=== PATIENT | female | born 1965 | race African-American/Black ===

== ENCOUNTER 2019-03-28 14:39 | Inpatient (IN) ==
[2019-03-28] MEDS ORDERED: ZOFRAN IV PRN (16:52)
[2019-03-28 17:42] LABS: BASO# 0.04 X1000 (0.0-0.2); BASO% 0.3 % (0.0-0.8); EOS# 0.08 X1000 (0.0-0.7); EOS% 0.7 % (0.0-10.0); HEMATOCRIT 38.8 % (37.0-47.0); HEMOGLOBIN 12.5 g/dL (12.0-16.0); IMM GRAN# 0.02 X1000 (0.0-0.04); IMM GRAN% 0.2 % (0.0-0.5); LYMPH# 2.44 X1000 (1.2-3.4); LYMPH% 20.8 % (20.5-51.1); MCH 27.4 PG (27-31); MCHC 32.2 g/dL (33-37); MCV 84.9 FL (81-99); MONO# 1.51 X1000 (0.11-0.59); MONO% 12.9 % (1.7-9.3); MPV 10.4 FL (7.4-10.4); NEUT# 7.64 X1000 (1.4-6.5); NEUT% 65.1 % (42.2-75.2); PLT 254 X1000 (130-400); RBC 4.57 XMIL (4.2-5.4); RDW 16.7 % (11.5-14.5); WBC 11.73 X1000 (4.8-10.8)
--- NOTE | 2019-03-28 17:44 | Diag Imaging Result Doc PS360 ---
EXAM: CHEST-1 VIEW INDICATION: abd back pain TECHNIQUE: One view COMPARISON: 03/14/2017 FINDINGS: Inspiration is slightly suboptimal and there is suggestion of mild atelectasis at the right lung base. Lungs are grossly clear, otherwise. There is no discrete pleural fluid collection or pneumothorax. The cardiomediastinal silhouette and central vasculature are grossly unremarkable. IMPRESSION: Suggestion of minimal right basilar atelectasis. No definite acute pathology, otherwise. Electronically signed by Adebayo Bernal 03/28/2019 5:41 PM
--- NOTE | 2019-03-28 17:48 | Diag Imaging Result Doc PS360 ---
EXAM: KUB ABDOMEN INDICATION: abd back pain TECHNIQUE: 2 views COMPARISON: 04/29/2018 FINDINGS: There is somewhat abundant stool in the colon suggesting possible mild constipation. There is no obstructive bowel pattern. There is no evidence of large volume free abdominal gas. There is no evidence of organomegaly. No abnormal calcific densities project over the abdomen or pelvis. IMPRESSION: Possible mild constipation. Electronically signed by Adebayo Bernal 03/28/2019 5:46 PM
[2019-03-28 18:03] LABS: POTASSIUM 3.6 mmol/L (3.5-5.1); SODIUM 139 mmol/L (136-145)
[2019-03-28 18:04] LABS: AGAP 16; ALB/GLOB RATIO 1.2; ALKALINE PHOSPHATASE 90 U/L (32-104); BUN 10 mg/dL (8-22); CALCIUM 10.1 mg/dL (8.8-10.2); CHLORIDE 102 mmol/L (98-107); COSMO 277; CREATININE 0.9 mg/dL (0.5-0.9); ESTIMATED GFR > 60; GLUCOSE 103 mg/dL (70-104); GOT 12 U/L (10-30); GPT 11 U/L (10-36); TCO2 21 mmol/L (25-35); TOTAL BILIRUBIN 0.34 mg/dL (0.20-1.00); TOTAL PROTEIN 7.3 g/dL (6.3-8.3)
[2019-03-28] MEDS: MORPHINE IV PRN ×3 (18:57→23:50)
[2019-03-28 19:23] LABS: URINE SOURCE CLEAN CATCH
[2019-03-28 19:32] LABS: BILIRUBIN URINE NEGATIVE (NEGATIVE); BLOOD URINE NEGATIVE (NEGATIVE); COLOR YELLOW; GLUCOSE URINE NEGATIVE (NEGATIVE); KETONE URINE NEGATIVE (NEGATIVE); LEUKOCYTES URINE NEGATIVE (NEGATIVE); NITRITE URINE NEGATIVE (NEGATIVE); PROTEIN URINE NEGATIVE (NEGATIVE); SP GRAVITY URINE 1.009; TURBIDITY URINE CLEAR (CLEAR); UR EPITHELIAL CELLS <10 /HPF (<10); URINE BACTERIA NEGATIVE /HPF; URINE RBC <10 /HPF (<10); URINE WBC <10 /HPF (<10); UROBILINOGEN URINE NORMAL (NORMAL)
[2019-03-28] MEDS: LEVAQUIN 750 MG/D5W 750 MG/150 ML IVPB IV SCH (20:18)
[2019-03-28] MEDS: KLONOPIN PO SCH (20:18)
[2019-03-28] MEDS: ZANAFLEX PO SCH (20:18)
[2019-03-29] MEDS: MORPHINE IV PRN ×3 (02:22→09:28)
[2019-03-29] MEDS: PRILOSEC PO SCH (06:23)
--- NOTE | 2019-03-29 06:30 | Diag Imaging Result Doc PS360 ---
CT ABD/PELVIS W/PO AND IV CON - 03/28/2019 INDICATION: abd pain,back pain COMPARISON: 02/18/2019 FINDINGS: The lung bases are clear and the heart size is normal. There is a benign flash filling hemangioma in the liver dome. This is stable from prior. Stable lobular kidneys bilaterally. The gallbladder, pancreas, spleen, and adrenals are normal. No bowel obstruction or inflammation. Normal appendix. Urinary bladder, uterus, and rectum are normal. There is advanced multilevel degenerative disc disease all throughout the thoracic spine in the lower lumbar spine. The worse level is L5-S1. No fracture or subluxation. IMPRESSION: No acute disease or change from prior. This exam was performed using automated exposure control, adjustment of mA or kV according to patient size, and/or use of iterative reconstruction technique Electronically signed by Noman Odonnell 03/29/2019 6:28 AM
[2019-03-29] MEDS ORDERED: PROZAC PO SCH (09:00)
[2019-03-29] MEDS: ZANAFLEX PO SCH (09:29)
[2019-03-29] MEDS: KLONOPIN PO SCH ×2 (09:29→23:50)
--- NOTE | 2019-03-29 12:25 | PROGRESS NOTE ---
DATE: 03/29/2019 SUBJECTIVE: Ms. Schneider had some constipation. She has severe back pain. She has severe degenerative disk disease in the lumbar spine. I am going to start her on some IV Robaxin if it is available, and we will continue on the medications by mouth for pain. She has constipation. CT scan of the of the abdomen really did not reveal any acute abdominal disease. There is advanced multilevel degenerative arthritis. I think the arthritis is giving her a lot of back and referred abdominal pain. -1 cc: Surinder Courtney MD
[2019-03-29] MEDS: FLAGYL 250 MG/NS 250 MG/50 ML IVPB IV SCH ×2 (13:09→23:50)
[2019-03-29] MEDS: NEURONTIN PO SCH ×2 (13:10→17:25)
[2019-03-29] MEDS: PROZAC PO SCH ×2 (13:10→17:25)
[2019-03-29] MEDS: ROBAXIN 1,000 MG in NS 50 ML IV SCH ×3 (13:12→23:41)
--- NOTE | 2019-03-29 13:28 | HISTORY AND PHYSICAL ---
Ms. Schneider is a 53-year-old female, is admitted with severe back and abdominal pain. She had some back pain with muscle spasm, could not walk and then she had a lot of abdominal pain which was mostly on the left side. This started actually about 24 hours ago. There was no association with vomiting. However, she had some diarrhea and intermittent constipation. No evidence of any rectal bleeding. She has past surgical history of hysterectomy and had a breast lump. She also had a total knee replacement on the right side. She had fracture in the right lower leg. She has been having constant pain. Besides this, she has severe degenerative arthritis in the lumbar spine, history of hypertension, GERD syndrome. MEDICATIONS: Has been on multiple medications including lisinopril, Klonopin, temazepam and Wilson as well as Zantac. ALLERGIES: She is not allergic to any medications. SOCIAL HISTORY: Does not smoke. Does not drink. REVIEW OF SYSTEMS: Other than pain, it is noncontributory. PHYSICAL EXAMINATION: VITAL SIGNS: Temperature normal, pulse 92 per minute, respiratory rate 16 per minute, blood pressure 113/71. HEAD: Normocephalic. Pupils PERRLA. Fundus examination not done. NECK: Supple. JVP normal. ENT: Unremarkable. There is no evidence of lymphadenopathy, thyroid enlargement, pedal edema, calf tenderness, anemia, cyanosis or clubbing. Pedal pulses well felt. BREAST EXAM: Normal. CHEST: Normal inspection. LUNGS: Clear on auscultation. PMI in the normal position. HEART: Sounds normal. No murmur, gallop or rub noted. ABDOMEN: Nondistended. Hernial orifices normal. No guarding, rigidity, free fluid, masses, or organomegaly. There was definite tenderness in the left lower quadrant. She also had a lot of muscle spasm in the back. 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 Cranial nerves normal. Motor and sensory system examination unremarkable. Deep tendon reflexes normal. Plantars downgoing. Skull and spine examination normal for age. No cerebellar signs or signs of meningeal irritation. Locomotor exam unremarkable. Her SLR was positive. The lumbosacral spine movements are painful and restricted. CLINICAL IMPRESSION: Severe back pain as well as abdominal pain, possible diverticulitis. She has muscle spasms from degenerative disk disease. Will treat accordingly. cc: Surinder Courtney MD
[2019-03-29] MEDS: NORCO-10 PO PRN ×3 (13:32→23:53)
[2019-03-29] MEDS: LEVAQUIN 750 MG/D5W 750 MG/150 ML IVPB IV SCH (17:29)
[2019-03-30] MEDS: RESTORIL PO PRN ×2 (01:08→23:07)
[2019-03-30] MEDS: ROBAXIN 1,000 MG in NS 50 ML IV SCH ×2 (04:17→11:27)
[2019-03-30] MEDS: FLAGYL 250 MG/NS 250 MG/50 ML IVPB IV SCH ×3 (05:00→16:59)
[2019-03-30] MEDS: PRILOSEC PO SCH (06:42)
[2019-03-30] MEDS: NORCO-10 PO PRN ×3 (06:42→19:07)
[2019-03-30] MEDS: LINZESS PO SCH (06:42)
[2019-03-30] MEDS ORDERED: DULCOLAX PR ONE (10:49)
--- NOTE | 2019-03-30 11:12 | PROGRESS NOTE ---
DATE: 03/30/2019 SUBJECTIVE: A 53-year-old, patient, complaining of pain in the flank area, moderate to severe pain, going on for 3 to 4 days. More pain with certain movement. Patient is getting pain medicine and muscle relaxer without significant relief. The patient has a hard time turning around in the bed or even getting up with the medication. No rash suggestive of shingles. No fever or chills. CT scan of the abdomen and pelvis results reviewed. The patient does have advanced degenerative disk disease. No nausea or vomiting. No dysuria or hematuria. Denied typical chest pain or palpitations. Denied any diarrhea. The patient was complaining of being constipated. PAST MEDICAL HISTORY: Hypertension, low back pain, muscle spasm, depression, muscle spasm. Admission history and physical noted. OBJECTIVE: Vital Signs: Reviewed. Neck: Supple. No JVD. Lungs: Bilateral good air entry present. Cardiovascular: S1 and S2 heard. Abdomen: Soft, globular. Bowel sounds present. Extremities: No cyanosis, clubbing. No acute DVT. Tenderness lumbosacral spine. Spasm of paraspinal muscle. IMAGING: Done on admission noted a CT scan of the abdomen and pelvis. Results reviewed. PLAN: I am going to repeat blood work. Continue current treatment. Physical therapy evaluation. Overall plan discussed with the patient and she is in agreement. cc: MD Surinder Garcia MD
[2019-03-30] MEDS: NEURONTIN PO SCH ×4 (11:19→17:38)
[2019-03-30] MEDS: PROZAC PO SCH ×3 (11:19→17:38)
[2019-03-30] MEDS: KLONOPIN PO SCH ×2 (11:19→23:02)
[2019-03-30] MEDS: MOBIC PO SCH (11:20)
[2019-03-30] MEDS: PRINIVIL PO SCH (11:20)
[2019-03-30] MEDS: LEVAQUIN 750 MG/D5W 750 MG/150 ML IVPB IV SCH (23:02)
[2019-03-30] MEDS: LOVENOX SUBQ SCH (23:02)
[2019-03-31] MEDS: FLAGYL 250 MG/NS 250 MG/50 ML IVPB IV SCH ×4 (00:47→17:45)
[2019-03-31] MEDS: NORCO-10 PO PRN ×4 (00:47→19:03)
[2019-03-31] MEDS: ROBAXIN 1,000 MG in NS 50 ML IV SCH ×4 (00:48→20:54)
[2019-03-31 05:57] LABS: BASO# 0.02 X1000 (0.0-0.2); BASO% 0.2 % (0.0-0.8); EOS# 0.13 X1000 (0.0-0.7); EOS% 1.4 % (0.0-10.0); HEMATOCRIT 34.3 % (37.0-47.0); HEMOGLOBIN 10.9 g/dL (12.0-16.0); LYMPH# 1.92 X1000 (1.2-3.4); MCH 27.1 PG (27-31); MCHC 31.8 g/dL (33-37); MCV 85.3 FL (81-99); MONO# 1.35 X1000 (0.11-0.59); MONO% 14.1 % (1.7-9.3); MPV 10.5 FL (7.4-10.4); NEUT# 6.16 X1000 (1.4-6.5); NEUT% 64.3 % (42.2-75.2); PLT 277 X1000 (130-400); RBC 4.02 XMIL (4.2-5.4); RDW 15.9 % (11.5-14.5); WBC 9.58 X1000 (4.8-10.8)
[2019-03-31 06:21] LABS: AGAP 8; ALB/GLOB RATIO 1.1; ALBUMIN 3.8 g/dL (3.5-5.0); ALKALINE PHOSPHATASE 77 U/L (32-104); BUN 16 mg/dL (8-22); CALCIUM 10.3 mg/dL (8.8-10.2); CHLORIDE 102 mmol/L (98-107); COSMO 269; ESTIMATED GFR > 60; GLUCOSE 127 mg/dL (70-104); GOT 13 U/L (10-30); GPT 10 U/L (10-36); MAGNESIUM 1.7 mg/dL (1.5-2.7); POTASSIUM 4.2 mmol/L (3.5-5.1); SODIUM 133 mmol/L (136-145); TCO2 23 mmol/L (25-35); TOTAL BILIRUBIN 0.37 mg/dL (0.20-1.00); TOTAL PROTEIN 7.3 g/dL (6.3-8.3)
[2019-03-31] MEDS: LINZESS PO SCH (06:49)
[2019-03-31] MEDS: PRILOSEC PO SCH (06:49)
[2019-03-31] MEDS: KLONOPIN PO SCH ×2 (09:12→21:09)
[2019-03-31] MEDS: MOBIC PO SCH (09:12)
[2019-03-31] MEDS: NEURONTIN PO SCH ×3 (09:12→17:46)
[2019-03-31] MEDS: PRINIVIL PO SCH (09:12)
[2019-03-31] MEDS: PROZAC PO SCH ×3 (09:12→17:46)
--- NOTE | 2019-03-31 09:37 | PROGRESS NOTE ---
DATE: 03/31/2019 SUBJECTIVE: Ms. Schneider is still complaining of significant pain in the back area and left flank, more pain with movement. No fever or chills. No renal or ureteric colic. The patient is on pain medicine and muscle relaxer without significant improvement. The patient had difficulty getting out of bed, not ready to be discharged. No unusual cough or expectoration. The patient admitted with significant back pain. She does have multiple medical problems. OBJECTIVE: Vital Signs: Her vital signs are noted which are stable. Neck: Supple. No JVD. Lungs: Bibasilar crepitations. Heart: S1 and S2 heard. Abdomen: Soft, globular. Bowel sounds present. I did look for any rash of shingles. I could not. Extremities: No cyanosis, clubbing or acute DVT. 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 Patient does have tenderness in lumbosacral spine and muscle spasm. LABORATORY DATA: I did blood work today. WBC count 9.58, hemoglobin 10.9, hematocrit 34.3, and platelet count 277,000. Electrolytes were fairly benign. CONSIDERATIONS: 1. Severe low back pain and muscle spasm, not able to get out of bed without any assistance. I did order physical therapy. The patient is on pain medicine and muscle relaxer, and also Mobic. 2. Her other problems include hypertension, morbid obesity, gastritis and reflux disease, constipation. The patient did respond to Dulcolax suppository. I am going to continue current treatment. Fall precaution. cc: MD Surinder Garcia MD
[2019-03-31] MEDS: LOVENOX SUBQ SCH (21:08)
[2019-03-31] MEDS: LEVAQUIN 750 MG/D5W 750 MG/150 ML IVPB IV SCH (21:08)
[2019-04-01] MEDS: NORCO-10 PO PRN ×5 (00:35→23:11)
[2019-04-01] MEDS: RESTORIL PO PRN ×2 (00:36→23:11)
[2019-04-01] MEDS: ROBAXIN 1,000 MG in NS 50 ML IV SCH ×3 (03:31→22:30)
[2019-04-01] MEDS: FLAGYL 250 MG/NS 250 MG/50 ML IVPB IV SCH (04:49)
[2019-04-01] MEDS: LINZESS PO SCH (06:41)
[2019-04-01] MEDS: PRILOSEC PO SCH (06:41)
[2019-04-01] MEDS: PROZAC PO SCH ×3 (08:21→17:16)
[2019-04-01] MEDS: PRINIVIL PO SCH (08:21)
[2019-04-01] MEDS: MOBIC PO SCH (08:21)
[2019-04-01] MEDS: NEURONTIN PO SCH ×3 (08:21→17:16)
[2019-04-01] MEDS: KLONOPIN PO SCH ×2 (08:24→22:32)
--- NOTE | 2019-04-01 09:39 | PROGRESS NOTE ---
DATE: 04/01/2019 SUBJECTIVE: Ms. Schneider is still continuing to have severe back pain. She cannot walk. She cannot even go to the bathroom. Physical therapy has been working with her. We are going to put her on Solu-Medrol and see the response. We will also see if she can qualify for rehab. cc: Surinder Courtney MD
[2019-04-01] MEDS: SOLU-MEDROL IV SCH ×2 (11:21→17:17)
[2019-04-01] MEDS: LOVENOX SUBQ SCH (22:32)
[2019-04-01] MEDS: LEVAQUIN 750 MG/D5W 750 MG/150 ML IVPB IV SCH (22:34)
[2019-04-02] MEDS: SOLU-MEDROL IV SCH ×3 (00:42→20:55)
[2019-04-02] MEDS: NORCO-10 PO PRN ×4 (05:21→23:30)
[2019-04-02] MEDS: LINZESS PO SCH (05:21)
[2019-04-02] MEDS: PRILOSEC PO SCH (05:21)
[2019-04-02] MEDS: ROBAXIN 1,000 MG in NS 50 ML IV SCH ×3 (05:24→20:54)
[2019-04-02] MEDS: PRINIVIL PO SCH (09:22)
[2019-04-02] MEDS: MOBIC PO SCH (09:22)
[2019-04-02] MEDS: NEURONTIN PO SCH ×3 (09:23→17:46)
[2019-04-02] MEDS: PROZAC PO SCH ×3 (09:23→17:46)
[2019-04-02] MEDS: KLONOPIN PO SCH ×2 (09:28→20:54)
--- NOTE | 2019-04-02 09:30 | PROGRESS NOTE ---
DATE: 04/02/2019 SUBJECTIVE: She continues to have back pain and hurting. Physical therapy is helping her, and we are trying to reduce the Solu-Medrol. Overall condition is much better. SLR is positive. There is still severe local tenderness present. We will plan to discharge her tomorrow if she improves. -5 cc: Surinder Courtney MD
[2019-04-02] MEDS: LOVENOX SUBQ SCH (20:54)
[2019-04-02] MEDS: LEVAQUIN 750 MG/D5W 750 MG/150 ML IVPB IV SCH (20:54)
[2019-04-02] MEDS: RESTORIL PO PRN (23:30)
[2019-04-03] MEDS: ROBAXIN 1,000 MG in NS 50 ML IV SCH (04:16)
[2019-04-03] MEDS: NORCO-10 PO PRN ×3 (05:44→22:23)
[2019-04-03] MEDS: LINZESS PO SCH ×2 (05:44→06:05)
[2019-04-03] MEDS: PRILOSEC PO SCH ×3 (05:45→06:05)
[2019-04-03] MEDS: SOLU-MEDROL IV SCH ×2 (09:00→20:13)
[2019-04-03] MEDS: CATAFLAM PO SCH ×3 (09:00→16:30)
[2019-04-03] MEDS: PROZAC PO SCH ×3 (09:08→16:29)
[2019-04-03] MEDS: PRINIVIL PO SCH (09:08)
[2019-04-03] MEDS: KLONOPIN PO SCH ×2 (09:08→20:13)
[2019-04-03] MEDS: NEURONTIN PO SCH ×3 (09:08→16:29)
--- NOTE | 2019-04-03 11:50 | PROGRESS NOTE ---
DATE: 04/03/2019 Ms. Schneider is doing better. She is still in a lot of pain, however, she is walking some with the help of the cane. At times, she has acute pain. We are trying to reduce the Solu-Medrol that she is on and we have stopped the IV Robaxin. We will put her on tizanidine and Diclofenac today. We will see the response and probably discharge her tomorrow. -0 cc: Surinder Courtney MD
[2019-04-03] MEDS: LEVAQUIN 750 MG/D5W 750 MG/150 ML IVPB IV SCH (20:14)
[2019-04-03] MEDS: LOVENOX SUBQ SCH (20:14)
[2019-04-03] MEDS ORDERED: ZANAFLEX PO SCH (21:00)
[2019-04-03] MEDS: RESTORIL PO PRN (22:23)
[2019-04-04] MEDS: LINZESS PO SCH (06:11)
[2019-04-04] MEDS: PRILOSEC PO SCH (06:12)
[2019-04-04] MEDS: NORCO-10 PO PRN (06:12)
[2019-04-04 08:24] VITALS: BP 141/89
--- NOTE | 2019-04-04 09:04 | PROGRESS NOTE ---
DATE: 04/04/2019 Ms. Schneider is doing better. Her abdomen is soft, nontender. Diverticulitis has definitely improved and back pain has improved significantly. There is no muscle spasm. She can walk with some pain. We are going to discharge her today. cc: Surinder Courtney MD
[2019-04-04] MEDS: CATAFLAM PO SCH (09:06)
[2019-04-04] MEDS: PROZAC PO SCH (09:06)
[2019-04-04] MEDS: NEURONTIN PO SCH (09:06)
[2019-04-04] MEDS: PRINIVIL PO SCH (09:06)
[2019-04-04] MEDS: KLONOPIN PO SCH (09:15)
--- NOTE | 2019-04-04 23:28 | DISCHARGE SUMMARY ---
ADMISSION DATE: 03/28/2019 DISCHARGE DATE: 04/04/2019 HISTORY: Ms Schneider is a 53-year-old female who was admitted with severe back pain and severe abdominal pain. Clinically, it appeared like she had diverticulitis. No acute disease was noted on CT scan of the abdomen. She had severe arthritis in the lower spine, it was worse at L5-S1. Chest x-ray, there was suggestion of minimal right basilar atelectasis. LABORATORY DATA: Revealed CBC showed mild leukocytosis, white count is 11.73 initially with hemoglobin 12.5. Electrolytes are normal. BUN, creatinine was normal. Blood sugar was slightly elevated. Calcium was 10.3. A urinalysis was negative. COURSE IN THE HOSPITAL: She was in severe pain. IV morphine was given. Later on IV Robaxin was given. IV antibiotics, Levaquin and Flagyl, were given. She continued to improve, especially after we started some IV steroids for the back. Back and abdominal pain improved and we are going to discharge her. She was given physical therapy. DISCHARGE MEDICATIONS ARE FOLLOWS: [place] 7.5 t.i.d. p.r.n., 85 tablets, promethazine 25 mg t.i.d. p.r.n., 30 tablets, diclofenac 75 mg b.i.d. p.c., tizanidine 4 mg at bedtime, and prednisone 10 mg daily for 5 more days. DISCHARGE INSTRUCTIONS: She will be seen in the office in about 7 days. cc: Surinder Courtney MD
--- NOTE | 2019-04-04 23:40 | DISCHARGE SUMMARY ---
ADMISSION DATE: 03/28/2019 DISCHARGE DATE: 04/04/2019 ADDENDUM: FINAL DIAGNOSES: 1. Severe degenerative disk disease in the lumbar spine, giving rise to severe back pain. 2. Mild diverticulitis. cc: Surinder Courtney MD
== END 2019-04-04 10:40 | disposition home or self-care (01) | DRG 552 ==
LOC: DIRADM 14:39 → 4N 16:31
PROVIDERS: ADMIT Internal Medicine; ATTEND Internal Medicine

== ENCOUNTER 2019-05-06 14:47 | Inpatient (IN) ==
[2019-05-06 18:08] LABS: URINE SOURCE CLEAN CATCH
[2019-05-06 18:11] LABS: BILIRUBIN URINE NEGATIVE (NEGATIVE); BLOOD URINE NEGATIVE (NEGATIVE); COLOR YELLOW; GLUCOSE URINE NEGATIVE (NEGATIVE); KETONE URINE NEGATIVE (NEGATIVE); LEUKOCYTES URINE NEGATIVE (NEGATIVE); NITRITE URINE NEGATIVE (NEGATIVE); PH URINE 5.5; PROTEIN URINE NEGATIVE (NEGATIVE); SP GRAVITY URINE 1.014; TURBIDITY URINE HAZY (CLEAR); UROBILINOGEN URINE NORMAL (NORMAL)
--- NOTE | 2019-05-06 18:12 | Diag Imaging Result Doc PS360 ---
CHEST-1 VIEW - 05/06/2019 INDICATION: POSSIBLE DVT COMPARISON: 03/28/2019 FINDINGS: The lungs are normally expanded and clear. Heart size and mediastinal contours are normal. No pneumothorax or pleural effusion. IMPRESSION: Negative exam. Electronically signed by Noman Odonnell 05/06/2019 6:10 PM
--- NOTE | 2019-05-06 18:12 | Diag Imaging Result Doc PS360 ---
KNEE 1-2 VIEWS-LEFT - 05/06/2019 INDICATION: POSSIBLE DVT TECHNIQUE: One view COMPARISON: 03/01/2018 FINDINGS: A single limited view of the knee was ordered. There is some worsening degeneration of the lateral joint compartment with worsening osteophyte formation and subchondral sclerosis. No fracture or dislocation. Soft tissues are clear. IMPRESSION: Knee osteoarthritis. Electronically signed by Noman Odonnell 05/06/2019 6:10 PM
[2019-05-06 18:13] LABS: UR EPITHELIAL CELLS <10 /HPF (<10); URINE BACTERIA NEGATIVE /HPF; URINE RBC <10 /HPF (<10); URINE WBC <10 /HPF (<10)
--- NOTE | 2019-05-06 18:13 | Diag Imaging Result Doc PS360 ---
HIP 1 VIEW LEFT - 05/06/2019 INDICATION: POSSIBLE DVT TECHNIQUE: COMPARISON: 05/15/2015 FINDINGS: There is no fracture or dislocation. IMPRESSION: No fracture or dislocation. Electronically signed by Noman Odonnell 05/06/2019 6:11 PM
[2019-05-06] MEDS ORDERED: HYDROCODONE/APAP 7.5-325/15 ML PO PRN (18:21)
[2019-05-06 18:24] LABS: URINE CRYSTALS NONE SEEN
[2019-05-06] MEDS ORDERED: PHENERGAN PO PRN (18:30)
[2019-05-06 19:11] LABS: HEMATOCRIT 33.2 % (37.0-47.0); HEMOGLOBIN 10.5 g/dL (12.0-16.0); MCH 27.1 PG (27-31); MCHC 31.6 g/dL (33-37); MCV 85.8 FL (81-99); MPV 10.7 FL (7.4-10.4); RBC 3.87 XMIL (4.2-5.4); RDW 15.4 % (11.5-14.5); WBC 9.43 X1000 (4.8-10.8)
[2019-05-06 19:41] LABS: ALB/GLOB RATIO 0.9; ALBUMIN 3.9 g/dL (3.5-5.0); CALCIUM 10.5 mg/dL (8.8-10.2); CREATININE 1.4 mg/dL (0.5-0.9); POTASSIUM 4.4 mmol/L (3.5-5.1); TOTAL BILIRUBIN 0.15 mg/dL (0.20-1.00); TOTAL PROTEIN 8.2 g/dL (6.3-8.3)
[2019-05-06] MEDS: ELIQUIS PO SCH (20:21)
[2019-05-06] MEDS: KLONOPIN PO SCH (20:24)
[2019-05-06] MEDS: SOLU-MEDROL IV SCH (22:10)
[2019-05-07] MEDS: PROTONIX PO SCH (06:41)
[2019-05-07] MEDS: SOLU-MEDROL IV SCH ×3 (06:45→20:32)
[2019-05-07] MEDS: KLONOPIN PO SCH ×2 (08:55→22:08)
[2019-05-07] MEDS: PROZAC PO SCH (08:55)
[2019-05-07] MEDS: ZANAFLEX PO SCH (08:55)
[2019-05-07] MEDS: ELIQUIS PO SCH ×2 (08:55→20:32)
[2019-05-07] MEDS: NORCO-7.5 PO PRN ×3 (08:56→20:42)
[2019-05-07] MEDS: PRINZIDE 10/12.5MG PO SCH (09:01)
[2019-05-07] MEDS: POTASSIUM CHLORIDE 10 MEQ in 1/2 NS 1,000 ML IV SCH (09:01)
--- NOTE | 2019-05-07 09:12 | HISTORY AND PHYSICAL ---
HISTORY OF PRESENT ILLNESS: Ms. Schneider is a 53-year-old female. She came to the office because of generalized weakness, inability to walk. She was in a wheelchair. She had swelling of the left lower extremity, and it was tender all over. She had difficulty in walking. She could not even take 1 or 2 steps. She has not been eating well on account of pain, and appeared to be somewhat dehydrated. She was extremely weak. Hence, we decided to admit her. Other details of personal, past, and family history reveal a history of severe arthritis in both knees. She also had a fracture of the right leg, right knee replacement performed in the past. She had severe degenerative disk disease in the lumbar spine, obesity, possible sleep apnea, severe GERD syndrome, hypertension, severe anxiety. She is on multiple medications. There is a past history of smoking for several years. However, she has not been smoking the last 5 years. No history of alcoholism. She is allergic to meloxicam and methocarbamol. REVIEW OF SYSTEMS: Other than multiple joint pains, inability to walk, and generalized weakness, it was noncontributory. PAST SURGICAL HISTORY: History of right knee replacement, as well as bilateral carpal tunnel syndrome surgery, and surgery for a fracture in the right lower extremity. PHYSICAL EXAMINATION: GENERAL: The patient is alert and oriented. VITAL SIGNS: Temperature normal, pulse 80 per minute, respiratory rate 18 per minute, blood pressure 96/86. HEENT: Head normocephalic. Pupils PERRLA. Fundus examination not done. ENT: Unremarkable. NECK: Supple. JVP normal. There is no evidence of lymphadenopathy, thyroid enlargement. EXTREMITIES: No evidence of cyanosis or clubbing. There was a lot of pedal edema on the entire left leg and the left calf, as well as the knee and thigh area were very tender. She could not allow me to do the Homans sign, and she could not take more than 1 or 2 steps on the left side. She was in a wheelchair. There was some moderate dehydration. BREASTS: Not done. CHEST: Normal inspection. LUNGS: Clear on auscultation. HEART: PMI cannot be felt. Heart sounds normal. No murmur, gallop, or rub noted. ABDOMEN: Nondistended. Hernial orifices normal. No guarding, rigidity, free fluid, masses, or organomegaly. Bowel sounds normal. RECTAL: Deferred. CENTRAL NERVOUS SYSTEM: Higher functions normal. Cranial nerves normal. Motor and sensory system examination unremarkable. Deep tendon reflexes normal. Plantars downgoing. SKULL/SPINE: Painful movements of the lumbosacral spine. No cerebellar signs or signs of meningeal irritation. Local motor exam reveals painful movements of both knees. Hip movements were painful. SKIN: Presence of dehydration with dryness of mucous membranes, loss of skin turgor on the extremities, except the left lower extremity was edematous. CLINICAL IMPRESSION: 1. Dehydration. 2. Severe arthritis in both knees. 3. Possible deep venous thrombosis in the left leg. PLAN: Plan to admit her to the hospital. This patient is totally wheelchair bound, cannot ambulate at all, and is extremely weak. cc: Surinder Courtney MD MTDD
--- NOTE | 2019-05-07 09:17 | PROGRESS NOTE ---
DATE: 05/07/2019 SUBJECTIVE: Ms. Schneider was admitted yesterday and was admitted for dehydration. She was admitted because she could not walk, she would not take few steps, and left leg is swollen. We will order some IV fluids on her and continue the same medications. -0 cc: Surinder Courtney MD
[2019-05-07 09:53] LABS: HEMOGLOBIN A1C 5.9 % (4.8-6.0)
[2019-05-07] MEDS: NEURONTIN PO SCH ×2 (14:20→20:32)
[2019-05-08] MEDS: POTASSIUM CHLORIDE 10 MEQ in 1/2 NS 1,000 ML IV SCH (03:16)
[2019-05-08] MEDS: PROTONIX PO SCH ×2 (05:54→06:53)
[2019-05-08] MEDS: SOLU-MEDROL IV SCH ×3 (05:54→20:20)
[2019-05-08] MEDS: NORCO-7.5 PO PRN ×3 (06:06→20:27)
[2019-05-08 07:41] LABS: AGAP 16; BUN 44 mg/dL (8-22); CALCIUM 10.5 mg/dL (8.8-10.2); CHLORIDE 103 mmol/L (98-107); COSMO 298; ESTIMATED GFR > 60; SODIUM 139 mmol/L (136-145); TCO2 20 mmol/L (25-35)
[2019-05-08 07:52] LABS: GLUCOSE 256 mg/dL (70-104); POTASSIUM 5.4 mmol/L (3.5-5.1)
[2019-05-08] MEDS ORDERED: DULCOLAX PR ONE (08:50)
--- NOTE | 2019-05-08 09:09 | PROGRESS NOTE ---
DATE: 05/08/2019 Ms. Schneider is upset. She has constipation. She cannot walk. Her x-ray studies, including the hip x-ray on the left side, the knee, and chest x-ray are unremarkable. She says she cannot walk, cannot take more than 2 to 3 steps without a lot of pain. I will ask Dr. Ortega for followup on her right leg. Her dehydration is slowly improving. cc: Surinder Courtney MD
[2019-05-08] MEDS: ZANAFLEX PO SCH (09:27)
[2019-05-08] MEDS: PRINZIDE 10/12.5MG PO SCH (09:27)
[2019-05-08] MEDS: KLONOPIN PO SCH ×2 (09:27→20:20)
[2019-05-08] MEDS: ELIQUIS PO SCH ×2 (09:27→20:20)
[2019-05-08] MEDS: PROZAC PO SCH (09:28)
[2019-05-08] MEDS: NEURONTIN PO SCH ×3 (09:28→20:20)
--- NOTE | 2019-05-08 20:46 | ORTHOPAEDICS PROGRESS NOTE ---
DATE: 05/08/2019 REASON FOR CONSULTATION: Bilateral lower extremity pain. HISTORY OF PRESENT ILLNESS: Ms. Schneider is a 53-year-old female, with a past medical history of chronic pain, who presented to Dr. Courtney's office with complaints of generalized weakness and the inability to walk. Apparently, she initially presented in a wheelchair. She was having a lot of swelling of the left lower extremity and was tender. She complained of pain to the right knee and right foot as well. She states over the last few days she has been in extreme pain and very weak. Orthopedics have been consulted for help of management of the bilateral lower extremity pain. She was admitted to [facility] from Dr. Courtney's office. PAST MEDICAL HISTORY: 1. Depression. 2. Hypertension. 3. Rheumatoid arthritis. PAST SURGICAL HISTORY: 1. Carpal tunnel. 2. Right total knee replacement in November of this year. 3. Right subtalar and talonavicular fusion. REVIEW OF SYSTEMS: She complains of multiple joint pain, generalized weakness, and inability to walk. She complains of fatigue. She denies dizziness, lightheadedness, nausea or vomiting. ALLERGIES: Meloxicam, Robaxin. SOCIAL HISTORY: She lives alone. She denies tobacco, alcohol, or illicit drug use. PHYSICAL EXAMINATION: General: This is a 53-year-old female in no acute distress. Vital Signs: Temperature is 98 degrees, pulse is 67, respirations 18, blood pressure is 150/76, she is 96% on room air. HEENT: Head is atraumatic, normocephalic. Pupils equal, round, reactive to light. Cardiovascular: Regular rate and rhythm. Pulmonary: Breathing is even and nonlabored. Equal chest expansion. Abdomen: She is obese, but appears nondistended. Extremities: She has tenderness to palpation just generalized all over the right knee. There is tenderness to palpation mostly laterally at the ankle. She has incisions over the mid foot medially. She does not have much tenderness to palpation there. She has some altered sensation to the foot. She has sensation to light touch, but complains of a pins and needles sensation. There is no notable effusion at the knee. The patella tracks well and ligamentous exam is stable. She has good strength with dorsi- and plantar flexion. She is able to fully extend the knee. She can get a little past 90 degrees in flexion. This does not appear to cause her pain. She does have 5/5 strength. Left lower extremity exam: She does have moderate edema to this side, from the knee down. She has a 2+ pedal pulse. She has good sensation to light touch on this side. She does not complain of tenderness to palpation on exam to the knee or the foot. IMAGING: A 2-view of the left knee does show osteoarthritis. A hip film shows no obvious fracture or dislocation. ASSESSMENT: 1. Bilateral lower extremity pain. 2. Bilateral osteoarthritis of the knees. PLAN: On assessment, Ms. Schneider is not complaining of left knee pain. However, if that does continue, we could consider doing a steroidal injection on this side. She is having a lot of pain on this right side, so we are going to get knee films in the morning. She has a total knee on this side. We just want to make sure there is nothing going on with that. I will be unable to do an injection on that side, however. I think the big thing for her is going to be physical therapy at the knee and the foot. I am also going to get foot films in the morning since she does have hardware there, just to make sure nothing is going on with that. She does seem to have good strength, so I am not sure why she is unable to walk. She states it is just from the pain. A Doppler has been done, but the report has not been read yet. The preliminary findings are no deep venous thrombosis. I think we can do some lymphedema treatments on this left side. I think that could help with all of this swelling. We will talk with her more after we get some x-rays and get a better idea of where her pain is coming from. I think it is mostly going to be pain control and physical therapy. We will continue to follow her while she is in the hospital. Dictated by ZHANNA Mendoza for Dusty Arguello MD cc: ZHANNA Mendoza MD Amit V. Vora, MD
[2019-05-09] MEDS: PROTONIX PO SCH (06:18)
[2019-05-09] MEDS: SOLU-MEDROL IV SCH ×3 (06:18→22:27)
[2019-05-09 07:27] LABS: AGAP 12; BUN 41 mg/dL (8-22); CALCIUM 10.4 mg/dL (8.8-10.2); CHLORIDE 103 mmol/L (98-107); COSMO 292; ESTIMATED GFR > 60; GLUCOSE 247 mg/dL (70-104); POTASSIUM 5.1 mmol/L (3.5-5.1); SODIUM 137 mmol/L (136-145); TCO2 22 mmol/L (25-35)
--- NOTE | 2019-05-09 08:31 | ORTHOPAEDICS CONSULTATION ---
DATE: 05/09/2019 CHIEF COMPLAINT: Right leg pain. HISTORY OF PRESENT ILLNESS: This is a 53-year-old female who is now complaining of right leg pain about her knee and foot. She is complaining of tingling in her foot dr. Ortega operated on, and complaining of her right total knee that Dr. Dos Santos did in [place]. I have seen her in the past for an acetabular fracture on the left that we sent her to Dr. Dos Santos for back in 2018. Dr. Ortega has apparently operated on her right foot as well. She complains of pain and inability to walk and that she is limping. Past medical history, past surgeries, medications, and allergies, see admission history and physical. PHYSICAL EXAMINATION: Exam reveals a well-nourished female. She is alert, oriented, and cooperative with exam. She really has no pain with range of motion of her leg. She has some pain with range of motion of her foot, but there is no significant swelling, redness, erythema, or warmth. There is no swelling, redness, erythema, or warmth to her knee as well. She has good range of motion and is stable to exam. IMPRESSION: Leg pain of undetermined etiology. PLAN: I do not see anything from an orthopedic standpoint that we can do to help assist Ms. Schneider. You could certainly consider increasing gabapentin and possibly placing her on oral steroid Dosepak, and getting physical therapy to work with her. I encouraged her that everything appears normal. I will talk to Dr. Ortega about her foot, but otherwise there is nothing more to add to her care at this time. cc: MD Surinder Smith MD [facility]
--- NOTE | 2019-05-09 09:03 | PROGRESS NOTE ---
DATE: 05/09/2019 Ms. Schneider had an orthopedic consult with Dr. Arguello who did not really find anything very significant. Her left leg is still swollen. I am going to check it out for a venous ultrasound. Physical therapy has been working on her. We will x-ray her right foot today. Overall condition is unchanged. -6 cc: Surinder Courtney MD MTDD
[2019-05-09] MEDS: KLONOPIN PO SCH ×2 (10:19→22:34)
[2019-05-09] MEDS: PRINZIDE 10/12.5MG PO SCH (10:19)
[2019-05-09] MEDS: PROZAC PO SCH (10:19)
[2019-05-09] MEDS: NORCO-7.5 PO PRN ×2 (10:19→22:26)
[2019-05-09] MEDS: ZANAFLEX PO SCH (10:19)
[2019-05-09] MEDS: NEURONTIN PO SCH ×3 (10:19→22:27)
[2019-05-09] MEDS: ELIQUIS PO SCH ×2 (10:19→22:27)
--- NOTE | 2019-05-09 11:00 | Diag Imaging Result Doc PS360 ---
KNEE 3 VIEWS RIGHT - 05/09/2019 INDICATION: post op knee TECHNIQUE: Three views COMPARISON: 03/14/2017 FINDINGS: There has been right total knee arthroplasty. There is been patellar resurfacing. Alignment is overall anatomic. No hardware fracture or loosening. There are some calcifications at the origin and insertion of the medial collateral ligament compatible with an old ligamentous injury here. IMPRESSION: No specific acute abnormality. Electronically signed by Noman Odonnell 05/09/2019 10:58 AM
--- NOTE | 2019-05-09 11:02 | Diag Imaging Result Doc PS360 ---
FOOT COMPLETE RIGHT - 05/09/2019 INDICATION: right foot surgery TECHNIQUE: Three views COMPARISON: 05/15/2015 FINDINGS: There are two fixation screws in the posterior aspect of the calcaneus. There is also fusion screw and a fusion bracket at the talonavicular joints. No hardware fracture or loosening. There is much worse, diffuse degenerative spurring of the mid tarsal joints. No fracture or dislocation. No fluid collections or soft tissue gas. IMPRESSION: Significant worsening of degenerative changes of the foot. No acute disease or consultation. Electronically signed by Noman Odonnell 05/09/2019 11:00 AM
[2019-05-10] MEDS: PROTONIX PO SCH (06:43)
[2019-05-10] MEDS: SOLU-MEDROL IV SCH (06:44)
[2019-05-10 07:51] VITALS: BP 149/75
[2019-05-10] MEDS: PROZAC PO SCH (10:01)
[2019-05-10] MEDS: KLONOPIN PO SCH (10:01)
[2019-05-10] MEDS: NEURONTIN PO SCH (10:01)
[2019-05-10] MEDS: PRINZIDE 10/12.5MG PO SCH (10:01)
[2019-05-10] MEDS: ELIQUIS PO SCH (10:02)
[2019-05-10] MEDS: ZANAFLEX PO SCH (10:02)
[2019-05-10] MEDS: NORCO-7.5 PO PRN (10:10)
--- NOTE | 2019-05-10 11:43 | PROGRESS NOTE ---
DATE: 05/10/2019 Ms. Schneider is still complaining about pain in the right foot. She says she is depressed. She cannot walk properly. I told her to use walker for a short time. She has been treated with IV Solu-Medrol without much help. She has multiple pins in the foot, and the arthritis is getting worse. She is on diclofenac which she is going to continue, and we will continue to give her pain medications. I gave her the prescriptions for [place] 7.5 t.i.d. p.r.n. (90 tablets) and Klonopin 1 mg b.i.d. p.r.n. (60 and 1 refill). -4 cc: Surinder Courtney MD
--- NOTE | 2019-05-10 14:23 | DISCHARGE SUMMARY ---
ADMISSION DATE: 05/06/2019 DISCHARGE DATE: 05/10/2019 Ms. Schneider is a 53-year-old female who was admitted because of dehydration, possible DVT in the left leg and inability to walk. She had hip and knee x-rays on the left side and they were negative. X-ray of the right foot showed worsening of the arthritis. She had multiple pins in the leg. The right x-ray also was negative. There has been total right knee arthroplasty. Venous flow studies were negative in her leg as per the blow mold technician. I do not have the results yet. She had some reflux of the flow, probably incompetency of the valves, but otherwise it was negative. Orthopedic consult was made. Dr. Arguello saw her and he did not see any orthopedic reason to intervene at the present time. Consider gabapentin, placing her on steroid Dosepak. I gave her IV Solu-Medrol and that has not helped her and she will later on see Dr. Ortega. FINAL DIAGNOSIS: Severe arthritis, right foot. Dehydration. She was treated with IV fluids. BUN is still 40, creatinine is normal. We will discharge today. cc: Surinder Courtney MD
--- NOTE | 2019-05-13 14:31 | Extremity Venous Study ---
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 REQUESTING PHYSICIAN: Unknown. INDICATION: Edema in the legs. FINDINGS: The deep and superficial veins of the bilateral lower extremities were visualized along their course. All vessels were compressible with forward flow, and no evidence intraluminal thrombus. There was deep reflux noted in the left common femoral vein with Valsalva. cc: MD Surinder Hammonds MD
== END 2019-05-10 12:05 | disposition home health service (06) | DRG 641 ==
LOC: DIRADM 14:47 → 4N 17:23
PROVIDERS: ADMIT Internal Medicine; ATTEND Internal Medicine

== ENCOUNTER 2019-09-17 10:29 | Inpatient (IN) ==
[2019-09-17] MEDS ORDERED: SODIUM CHLORIDE 0.9% INJ SCH (12:00)
--- NOTE | 2019-09-17 12:16 | EKG Report ---
Test Performed on : 09/17/2019 12:04:28 PM Test Reason : pain Blood Pressure : / mmHG Vent. Rate : 081 BPM Atrial Rate : 081 BPM P-R Int : 142 ms QRS Dur : 084 ms QT Int : 382 ms P-R-T Axes : 050 031 043 degrees QTc Int : 443 ms Normal sinus rhythm. Normal ECG When compared with ECG of 18-FEB-2019 20:26, premature supraventricular complexes. are no longer present Nonspecific T wave abnormality no longer evident in Lateral leads Confirmed by Justin Villa MD ([id number]) on 09/18/2019 12:15:12 PM
[2019-09-17 12:52] LABS: HEMATOCRIT 37.4 % (37.0-47.0); HEMOGLOBIN 11.5 g/dL (12.0-16.0); MCH 26.2 PG (27-31); MCHC 30.7 g/dL (33-37); MCV 85.2 FL (81-99); MPV 10.5 FL (7.4-10.4); RBC 4.39 XMIL (4.2-5.4); RDW 15.9 % (11.5-14.5); WBC 12.55 X1000 (4.8-10.8)
[2019-09-17 13:05] LABS: AGAP 14; ALB/GLOB RATIO 0.9; ALBUMIN 3.8 g/dL (3.5-5.0); ALKALINE PHOSPHATASE 91 U/L (32-104); BUN 15 mg/dL (8-22); CALCIUM 10.4 mg/dL (8.8-10.2); CHLORIDE 97 mmol/L (98-107); COSMO 277; CREATININE 0.9 mg/dL (0.5-0.9); ESTIMATED GFR > 60; GLUCOSE 169 mg/dL (70-104); GOT 17 U/L (10-30); GPT 17 U/L (10-36); POTASSIUM 4.4 mmol/L (3.5-5.1); SODIUM 136 mmol/L (136-145); TCO2 25 mmol/L (25-35); TOTAL BILIRUBIN 0.25 mg/dL (0.20-1.00); TOTAL PROTEIN 8.2 g/dL (6.3-8.3)
--- NOTE | 2019-09-17 13:07 | Diag Imaging Result Doc PS360 ---
HIP 1 VIEW LEFT - 09/17/2019 INDICATION: severe (L) hip pain TECHNIQUE: COMPARISON: 09/14/2019 FINDINGS: The hip joint is fairly well-preserved. There is stable extremely severe osteophyte formation at the origin of the gluteus musculature at the lateral left iliac wing. There is also stable degenerative spurring at the greater trochanter of the proximal femur. IMPRESSION: Advanced degenerative changes of the pelvis and hip. Electronically signed by Noman Odonnell 09/17/2019 1:05 PM
--- NOTE | 2019-09-17 13:09 | Diag Imaging Result Doc PS360 ---
CHEST-1 VIEW - 09/17/2019 INDICATION: sob COMPARISON: 05/06/2019 FINDINGS: There is some infiltrate or atelectasis at the left lower lobe with partial obscuration of the diaphragm. There is also some trace linear atelectasis in the lateral right costophrenic angle. Heart size and pulmonary vascularity is normal. No pneumothorax or pleural effusion. IMPRESSION: Trace nonspecific bibasilar atelectasis/infiltrate. Electronically signed by Noman Odonnell 09/17/2019 1:07 PM
--- NOTE | 2019-09-17 13:10 | Diag Imaging Result Doc PS360 ---
THORACO-LUMBAR SPINE - 09/17/2019 INDICATION: Severe (L) hip pain TECHNIQUE: Two views COMPARISON: None FINDINGS: There is no fracture or subluxation. Vertebral body heights are preserved. There is advanced multilevel disc degeneration, mainly throughout the lower thoracic spine, but also affecting the mid lumbar spine. IMPRESSION: Advanced multilevel degenerative disc disease. No acute injury. Electronically signed by Noman Odonnell 09/17/2019 1:08 PM
[2019-09-17] MEDS: PROTONIX IV SCH (13:31)
[2019-09-17] MEDS: NEURONTIN PO SCH ×2 (13:31→17:30)
[2019-09-17] MEDS: LOVENOX SUBQ SCH (13:31)
[2019-09-17] MEDS: DILAUDID IV PRN ×3 (13:32→22:42)
--- NOTE | 2019-09-17 13:34 | Diag Imaging Result Doc PS360 ---
CT ABDOMEN/PELVIS W/O CONTRAST - 09/17/2019 INDICATION: abd pain COMPARISON: 03/28/2019 FINDINGS: The lung bases are clear and the heart size is normal. No radiodense renal stones. No hydronephrosis or hydroureter. Abdominal organs are all normal. No bowel obstruction or inflammation. Normal appendix. No free air, free fluid, or lymphadenopathy. Urinary bladder, uterus, and rectum are normal. There is advanced degenerative spurring of the left iliac wing. There is advanced degeneration throughout the thoracolumbar spine. No acute bony lesions. IMPRESSION: No acute process. This exam was performed using automated exposure control, adjustment of mA or kV according to patient size, and/or use of iterative reconstruction technique Electronically signed by Noman Odonnell 09/17/2019 1:31 PM
[2019-09-17 15:16] LABS: URINE SOURCE CLEAN CATCH
[2019-09-17 15:20] LABS: BILIRUBIN URINE NEGATIVE (NEGATIVE); BLOOD URINE NEGATIVE (NEGATIVE); COLOR YELLOW; GLUCOSE URINE NEGATIVE (NEGATIVE); KETONE URINE TRACE mg/dL (NEGATIVE); LEUKOCYTES URINE NEGATIVE (NEGATIVE); NITRITE URINE NEGATIVE (NEGATIVE); PROTEIN URINE TRACE mg/dL (NEGATIVE); SP GRAVITY URINE 1.024; TURBIDITY URINE CLEAR (CLEAR); UROBILINOGEN URINE NORMAL (NORMAL)
[2019-09-17 15:31] LABS: UR EPITHELIAL CELLS >10 /HPF (<10); URINE BACTERIA NEGATIVE /HPF; URINE RBC <10 /HPF (<10); URINE WBC <10 /HPF (<10)
[2019-09-17 15:34] LABS: URINE CRYSTALS NONE SEEN
[2019-09-17] MEDS: KLONOPIN PO SCH (22:42)
[2019-09-18] MEDS: DILAUDID IV PRN ×5 (03:50→20:36)
[2019-09-18] MEDS: LOVENOX SUBQ SCH (05:41)
[2019-09-18] MEDS: ZANAFLEX PO SCH (08:22)
[2019-09-18] MEDS: PROZAC PO SCH (08:22)
[2019-09-18] MEDS: NEURONTIN PO SCH ×3 (08:22→17:21)
[2019-09-18] MEDS: CATAFLAM PO SCH ×2 (08:27→17:21)
--- NOTE | 2019-09-18 09:38 | HISTORY AND PHYSICAL ---
HISTORY OF PRESENT ILLNESS: Ms. Schneider is a 54-year-old, female, who is admitted with severe abdominal pain as well as severe back and hip pain. She is unable to walk. The patient is obese, has severe arthritis, degenerative disk disease in the lumbar and dorsal spine, and pain radiates to both legs. However, she was walking, and now she has stopped walking completely. She is in severe pain. Besides, she has severe left lower quadrant abdominal pain, which was treated in the past with oral antibiotics without much relief. PAST SURGICAL HISTORY: History of lumps removed from both breasts that were benign. SOCIAL HISTORY: She does smoke off and on. She does not drink. ALLERGIES: She is allergic to meloxicam and methocarbamol. REVIEW OF SYSTEMS: The patient has severe depression on account of family problems, and anxiety also. Abdominal pain is associated with nausea and occasional vomiting. There is no diarrhea. There is a history of constipation. She has a history of hypertension. PHYSICAL EXAMINATION: GENERAL: The patient is alert and oriented. VITAL SIGNS: Temperature normal, pulse 89 per minute, respiratory rate 16 per minute, blood pressure 107/64. HEENT: Head normocephalic. Pupils PERRLA. Fundus examination reveals grade 2 changes of hypertensive retinopathy. ENT examination unremarkable. NECK: Supple. JVP normal. There is no evidence of lymphadenopathy, thyroid enlargement, pedal edema, calf tenderness, anemia, cyanosis, or clubbing. Pedal pulses well felt. BREASTS: She has large breasts, and scars on both breasts. No lumps felt. LUNGS: Clear on auscultation. HEART: PMI in the normal position. Heart sounds normal. No murmur, gallop, or rub noted. ABDOMEN: Diffusely tender in the left lower quadrant. No guarding, rigidity, free fluid, masses, or organomegaly. Bowel sounds normal. RECTAL: Deferred. 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 Cranial nerves normal. Motor and sensory system examination unremarkable. Deep tendon reflexes normal. Plantars downgoing. Skull and spine examination normal for age. No cerebellar signs or signs of meningeal irritation. Locomotor exam reveals painful movements of both hips, knees, as well as the spine movements are severely painful. SLR positive. No cerebellar signs or signs of meningeal irritation. Gait cannot be checked as she cannot walk and put weight on her hip, especially the left side. IMPRESSION: Lower quadrant abdominal pain. PLAN: Plan to get the CT scan. She also has leukocytosis. We will start IV Levaquin on her, and give her pain medication IV, as well as Zofran p.r.n. for vomiting. cc: Surinder Courtney MD
--- NOTE | 2019-09-18 09:54 | Diag Imaging Result Doc PS360 ---
EXAM: FOOT COMPLETE LEFT HISTORY: severe pain TECHNIQUE: Three views COMPARISON: None. FINDINGS: The bones are mildly osteopenic. There are bone erosions to the medial cuneiform and intermediate cuneiform and possible proximal second metatarsal. No fracture. No dislocation. Small degenerative bone spurs. IMPRESSION: There appears to be a bony erosion in the midfoot. This could be due to osteomyelitis. An MRI with and without contrast is recommended. Electronically signed by Terrence Garcia 09/18/2019 9:52 AM
--- NOTE | 2019-09-18 10:06 | Diag Imaging Result Doc PS360 ---
EXAM: FOOT COMPLETE RIGHT HISTORY: severe pain TECHNIQUE: Three views COMPARISON: 05/09/2019 FINDINGS: There are postsurgical changes similar to the prior exam. Mild to moderate arthritis similar to the prior study. No fracture. No dislocation. IMPRESSION: Stable exam. Electronically signed by Terrence Garcia 09/18/2019 10:04 AM
[2019-09-18] MEDS: LEVAQUIN 500 MG/D5W 500 MG/100 ML IVPB IV SCH (11:12)
[2019-09-18] MEDS: PROTONIX IV SCH (12:28)
[2019-09-18] MEDS: ZOFRAN IV PRN (16:12)
[2019-09-18] MEDS: KLONOPIN PO SCH (20:36)
[2019-09-19] MEDS: DILAUDID IV PRN ×5 (00:55→23:22)
[2019-09-19] MEDS: ZOFRAN IV PRN (00:55)
[2019-09-19] MEDS: LOVENOX SUBQ SCH (06:55)
--- NOTE | 2019-09-19 09:18 | PROGRESS NOTE ---
DATE: 09/19/2019 SUBJECTIVE: Ms. Schneider is a 54-year-old, female, who is getting MRI of the left foot. She has erosion in the midportion of the foot, and she may have osteomyelitis. Her urinalysis is negative. She has leukocytosis. We are going to ask Dr. Ortega to see her for the feet problem as she cannot walk. She has severe arthritis in multiple joints. cc: Surinder Courtney MD
[2019-09-19] MEDS ORDERED: DULCOLAX PR ONE (09:20)
[2019-09-19] MEDS: CATAFLAM PO SCH ×3 (09:51→19:03)
[2019-09-19] MEDS: LEVAQUIN 500 MG/D5W 500 MG/100 ML IVPB IV SCH (09:52)
[2019-09-19] MEDS: ZANAFLEX PO SCH (09:52)
[2019-09-19] MEDS: NEURONTIN PO SCH ×3 (09:52→20:31)
[2019-09-19] MEDS: PROZAC PO SCH (09:52)
--- NOTE | 2019-09-19 10:59 | Diag Imaging Result Doc PS360 ---
EXAM: MRI LOW EXTRMTY W/O CON-LEFT INDICATION: MRI Lt foot to r/o osteomyelitis TECHNIQUE: COMPARISON: None. FINDINGS: There are extensive periarticular erosions at the second tarsometatarsal joint with involvement of the middle cuneiform and the base of the second metatarsal. The changes are also seen on a recent plain radiograph dated 09/18/2019. There is only mild increased signal associated with the middle cuneiform and base of the second metatarsal, which are probably reactive marrow signal changes. This probably represents severe erosive arthritis in this joint. Note that there is a reported history of rheumatoid arthritis. Given that there is relatively little fluid in the joint space, septic joint with adjacent osteomyelitis is less likely. If there were an infection, it would probably be subacute or chronic osteomyelitis. There is much milder degenerative arthropathy involving multiple other intertarsal joints with periarticular reactive marrow signal changes at several of these joints. The visualized tendinous and ligamentous structures appear to be intact. There is generalized soft tissue edema around the foot. IMPRESSION: 1.Prominent periarticular erosion at the second tarsometatarsal joint suggesting inflammatory arthritis, for which there is a reported history, or erosive osteoarthritis. Osteomyelitis is less likely. 2.Milder intertarsal degenerative changes as described. Electronically signed by Adebayo Bernal 09/19/2019 10:57 AM
[2019-09-19] MEDS: PROTONIX IV SCH (14:46)
[2019-09-19] MEDS: KLONOPIN PO SCH (20:30)
--- NOTE | 2019-09-19 22:08 | ORTHOPAEDICS CONSULTATION ---
DATE: 09/19/2019 CHIEF COMPLAINT: Bilateral foot pain. HISTORY OF PRESENT ILLNESS: Ms. Kami Schneider is a 54-year-old female who was admitted to the hospitalist service for severe abdominal pain and back pain. She is also having some bilateral foot pain. I have been seeing her a long time in clinic. We have done surgery on the right side for hindfoot fusion. She is mainly complaining of [id number] sensation especially on the right side and on the left. She is also complaining of left foot pain. She also complains of having thickened, discolored toenails on the right side. PAST MEDICAL HISTORY: Bilateral foot pain, obesity, degenerative disk disease, depression. PAST SURGICAL HISTORY: Right hindfoot fusion, right total knee replacement, bilateral lumpectomy. SOCIAL HISTORY: She occasionally uses tobacco. Denies any alcohol use. ALLERGIES: Meloxicam and methocarbamol. REVIEW OF SYSTEMS: Positive for some depression and anxiety, abdominal pain, nausea and vomiting. PHYSICAL EXAMINATION: General: Ms. Schneider is sitting on bedside, about to eat her meal. Overall she looks fairly healthy. She is not in any acute distress. Head and neck is normocephalic, atraumatic. Respirations: She has nonlabored breathing. Cardiovascular: Regular pulses. Abdomen is obese but not really distended. On left lower extremity exam, she has tenderness to palpation in the midfoot area. There is a little bit of swelling in that area as well. She has no skin ulcerations or abrasions seen. She is able to move the toes up and down fairly well. On right lower extremity exam, the previous incisions are well healed. There is no erythema or drainage there. The foot does turn into a little bit of abduction. She does have some paresthesias when I palpate the toes. Her toenails are thickened and sort of yellow and brittle appearing. DIAGNOSTIC DATA: Radiographs: Three-view of the left foot shows some degenerative changes of the 2nd tarsometatarsal joint. She has osteophyte off of the medial malleolus, and a little bit of arthritic change even at the naviculocuneiform area. Three-view right foot shows previous hardware. Hindfoot looks to be in good position. Can see a little bit of that abduction drift of the forefoot from the navicular on. MRI of the left foot shows a lot of degenerative change at the 2nd TMT joint. ASSESSMENT: 1. Left midfoot osteoarthritis. 2. Right midfoot osteoarthritis. 3. Neuropathic pain. 4. Onychomycosis, right foot. PLAN: I had a long talk with Ms. Schneider. She has a lot going on, unfortunately. I think there are 3 big things that are going on with her feet. One are her toenails. She really does not like the look of them or the thickness of then. I discussed with her that we have a lady that comes to clinic at our office on Mondays. Her name is Karmen Ovalle. She is certified to do toenail care, so we are going to schedule Ms. Schnieder to see her on a Monday to take care of the nails. It sounds like she is getting a lot of burning pain in the right foot and stinging pain, which does sound more neuropathic-type pain. I did discuss with her about possibly going up on her Neurontin. She says she takes 300 mg now, and so we have asked the primary team to see if they would want to increase her Neurontin even up to 600 at night to see if that can help, and maybe increasing the day doses as well. Concerning the left foot, she does have midfoot osteoarthritis through that whole area. I discussed with her that definitive treatment of that would be a big midfoot fusion which would be a fairly large procedure to undertake. We would not keep her in the hospital to wait to do that. From an orthopedic standpoint, I am okay with her being discharged home. I will see her this next Monday in clinic. We can get Karmen Ovalle to see her that day for her toenails, and I could see her for her feet if she is going to be discharged before that date. I do not see anything that is suspicious for osteomyelitis. I will see her in the morning. cc: MD Surinder Galvan MD MTDD
[2019-09-20] MEDS: DILAUDID IV PRN ×2 (03:36→08:05)
[2019-09-20] MEDS: LOVENOX SUBQ SCH (06:12)
[2019-09-20] MEDS: PROZAC PO SCH (08:07)
[2019-09-20] MEDS: CATAFLAM PO SCH (08:07)
[2019-09-20] MEDS: NEURONTIN PO SCH ×2 (08:07→15:39)
[2019-09-20] MEDS: LEVAQUIN 500 MG/D5W 500 MG/100 ML IVPB IV SCH (08:07)
[2019-09-20] MEDS: ZANAFLEX PO SCH (08:08)
[2019-09-20] MEDS ORDERED: NORCO-7.5 PO PRN (11:57)
[2019-09-20] MEDS ORDERED: SOLU-MEDROL IV SCH (12:15)
[2019-09-20] MEDS: PROTONIX IV SCH (12:20)
--- NOTE | 2019-09-20 13:37 | ORTHOPAEDICS PROGRESS NOTE ---
DATE: 09/20/2019 SUBJECTIVE: Ms Schneider is lying in bed this morning. She did not get much rest last night. OBJECTIVE: Right lower extremity exam: The foot does seem pretty calm this morning. Not a lot of tenderness to palpation although she does have some paresthesias when I palpate that area. On left lower extremity exam she still has a little bit of swelling to the dorsum of the foot. It has gone down some still some. She still has some tenderness to palpation to the midfoot area dorsally I do not see any skin ulcerations or abrasions to either foot. ASSESSMENT: 1. Toenail onychomycosis. 2. Neuropathic pain. 3. Left midfoot osteoarthritis. PLAN: I discussed with Ms. Schneider the overall plan today. I will plan on seeing her in the office this next Monday morning which will be 09/25/2019. We can get her to see Karmen Ovalle that morning as well and then we will start working up the left midfoot osteoarthritis and she is she is ready for surgical intervention. Concerning the neuropathic pain, she is already on Neurontin. I would ask the primary team to consider stopping that medication to help her with some of her neuropathic pain. She was okay with the plan. She can be weight bear as tolerated bilateral lower extremities. cc: MD Surinder Galvan MD
--- NOTE | 2019-09-20 15:25 | PROGRESS NOTE ---
DATE: 09/20/2019 SUBJECTIVE: Ms. Schneider continues to have severe pain in her back and hip. She has been trying to walk. However, she has been falling. Physical therapy is helping. She also has been on IV Levaquin for possible UTI. She has not got the urine culture yet. Urinalysis, however, is negative except for some ketones. Arthritis is severe. We are trying to get take pain medication of IV away and treat her with pain medications by mouth. cc: Surinder Courtney MD
[2019-09-20 16:09] VITALS: BP 131/74
[2019-09-20] MEDS ORDERED: PROZAC PO SCH (21:00)
[2019-09-21] MEDS ORDERED: LINZESS PO SCH (07:00)
[2019-09-21] MEDS ORDERED: LEVAQUIN PO SCH (09:00)
--- NOTE | 2019-09-24 08:58 | DISCHARGE SUMMARY ---
ADMISSION DATE: 09/17/2019 DISCHARGE DATE: 09/20/2019 Ms. Schneider who is a 54-year-old white female, was admitted with severe abdominal pain as well as back pain complaining of 2-[address] scan of the abdomen was negative for renal stones, hydronephrosis, hydroureter. Lungs were clear and abdominal organs were all normal with normal appendix without lymphadenopathy, severe degenerative arthritis, left iliac wing and had degenerative arthritis throughout the thoracolumbar spine. A hip x-ray on the left side as well as bilateral foot x-rays revealed advanced osteoarthritis. She also had an MRI of the left foot which again revealed prominent periarticular erosion of the 2nd tarsometatarsal joint suggesting inflammatory arthritis, osteomyelitis was less likely. The cervical lumbar spine x-ray also revealed arthritis. White count was 12.55. Electrolytes are normal. BUN and creatinine were normal. Calcium was 10.4.She was Initially treated with IV morphine, ]improved slowly. She was given IV Solu-Medrol also. She continued to improve. Dr. Ortega was consulted on account of severe arthritis in both feet and possible erosion in the left foot suggesting osteomyelitis. MRI did reveal a history of arthritis and osteomyelitis and Dr. Ortega decided to treat her medically as an outpatient and she was discharged. FINAL DIAGNOSES: 1. Severe degenerative arthritis with disk disease in the lumbar spine as well as left hip, both feet. 2. Severe anxiety with depression. 3. Abdominal pain was probably secondary from the spine, gout was a strong possibility too. We will discharge her today. cc: Surinder Courtney MD MTDD
== END 2019-09-20 16:23 | disposition home or self-care (01) | DRG 552 ==
LOC: DIRADM 10:29 → EDIPHOLD 11:37 → 3N 15:15
PROVIDERS: ADMIT Internal Medicine; ATTEND Internal Medicine